=== PATIENT | female | born 1975 | race Hispanic/Latino ===

== ENCOUNTER → 2016-09-02 | Outpatient (CLI) | payer SELFPAY ==
--- NOTE | 2016-09-03 09:01 | MAM ---
EXAM DESCRIPTION: MAMMO BREAST SCREENING BILATERAL CAD, images were reviewed with CAD technology, R2 computer-aided detection. CLINICAL HISTORY: [facility]. COMPARISON: No prior exam. FINDINGS: Routine views are obtained. Scattered glandular parenchymal pattern with the increased mammographic density. No dominant mass, architectural distortion or clustered microcalcification.. IMPRESSION: Benign exam. BIRAD CATEGORY: 2 BENIGN RECOMMENDATIONS: FOLLOW-UP: Routine screening mammogram in one year. According to the [employer], yearly mammograms are recommended starting at age 40 and continuing as long as a woman is in good health. Any breast change noted on a breast self-exam should be reported promptly to the patient's healthcare provider. Breast MRI is recommended for women with an approximately 20-25% or greater lifetime risk of breast cancer, including women with a strong family history of breast or ovarian cancer and women who have been treated for Hodgkin's disease. Electronically signed by: Tiffany Ohara 09/03/2016 09:00
== END ==
LOC: MAMMO 14:20
PROVIDERS: ATTEND Obstetrics & Gynecology
DX: Z12.31 Encounter for screening mammogram for malignant neoplasm of breast (principal); L40.9 Psoriasis, unspecified; N64.4 Mastodynia; L81.1 Chloasma; Z01.419 Encounter for gynecological examination (general) (routine) without abnormal findings